=== PATIENT | male | born 2005 | race Caucasian/White ===

== ENCOUNTER 2025-04-03 15:20 | Emergency (ER) | payer SELFPAY ==
[~2025-04-03] VITALS: Ht 177.8 cm; Wt 77.0 kg
[2025-04-03 15:38] VITALS: O2SAT 99
[2025-04-03] MEDS: KETOROLAC 30MG/ML VIAL IM ONE (19:16)
[2025-04-03 19:58] LABS: INFLUENZA TYPE A Presumptive Negative (Pres. Neg.)
[2025-04-03 19:59] LABS: INFLUENZA TYPE B Presumptive Negative (Pres. Neg.)
[2025-04-03] MEDS ORDERED: IBUP-2458 MT (20:22)
[2025-04-03 20:32] VITALS: BP 121/74; PULSE 61; RESP 16; TEMP 37; O2SAT 100
== END 2025-04-03 20:39 | disposition home or self-care (01) ==
LOC: ER 15:20
DX: J02.9 Acute pharyngitis, unspecified (principal); Z98.890 Other specified postprocedural states
CPT/HCPCS: 99283; 87426; 87430; 87070; 87804 ×2; 96372; J1885